=== PATIENT | male | born 1955 | race Two or more races ===

== ENCOUNTER 2024-06-02 15:58 | Emergency (ER) | payer MEDICAID ==
[~2024-06-02] VITALS: Ht 167.6 cm; Wt 68.2 kg
[2024-06-02 16:04] VITALS: TEMP 98.6
[2024-06-02] MEDS ORDERED: METF-1211 PO (16:06)
[2024-06-02] MEDS ORDERED: GLIP10TA17 PO (16:06)
[2024-06-02] MEDS: LIDOCAINE 1% 10 ML VIAL SQ ONE (18:16)
[2024-06-02] MEDS ORDERED: CEPH-558 PO (19:35)
[2024-06-02] MEDS: CEPHALEXIN MONOHYDRATE 500 MG CAPSULE PO ONE (19:41)
[2024-06-02 19:48] VITALS: BP 152/76; PULSE 77; RESP 18; O2SAT 100
== END 2024-06-02 19:51 | disposition home or self-care (01) ==
LOC: EMS 15:58
DX: S91.201A Unspecified open wound of right great toe with damage to nail, initial encounter (principal); E11.9 Type 2 diabetes mellitus without complications; Z79.84 Long term (current) use of oral hypoglycemic drugs; X58.XXXA Exposure to other specified factors, initial encounter; Y93.89 Activity, other specified; Y92.89 Other specified places as the place of occurrence of the external cause; Y99.8 Other external cause status
CPT/HCPCS: 99284; 11730; J3490